=== PATIENT | male | born 1965 | race Caucasian/White ===

== ENCOUNTER 2017-01-22 06:46 | Observation (INO) ==
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
[2017-01-22] MEDS ORDERED: 0.9 % Sodium Chloride 1,000 ML IVC ONE (07:18)
[2017-01-22 07:45] LABS: Basophils # 0.1 K/mcL (0.0-0.2); Basophils % 0.5 %; Eosinophils % 0.1 %; Hemoglobin 17.6 g/dL (12.9-16.9); Immature Granulocytes % 0.7 % (0-4); Lymphocytes # 1.5 K/mcL (0.6-4.6); Mean Corpuscular HGB Conc 31.3 g/dL (31.6-35.5); Mean Corpuscular Hemoglobin 27.8 pg (28.0-33.3); Mean Corpuscular Volume 89.1 fL (83.0-100.0); Mean Platelet Volume 11.6 fL (9.4-12.4); Monocytes # 0.9 K/mcL (0.0-1.3); Monocytes % 5.8 %; Neutrophils # 13.5 K/mcL (1.6-8.9); Red Blood Count 6.32 M/mcL (4.19-5.50); Red Cell Distribution Width 16.2 % (11.5-14.5); Segmented Neutrophils % 83.9 %
[2017-01-22 07:51] LABS: Hematocrit 56.3 % (37.5-50.1); Platelet Count 75 K/mcL (140-400)
[2017-01-22 08:03] LABS: BUN/Creatinine Ratio 11 (6-26); Blood Urea Nitrogen 33 mg/dL (8-26); Carbon Dioxide 13 mEq/L (19-29); Chloride 101 mEq/L (98-109); Ethanol < 10 mg/dL (0-10); Glucose 184 mg/dL (70-99); Osmolality,Calculated 300 (280-300); Sodium 139 mEq/L (136-145); eGFR For African Americans 26 (> 60); eGFR For Non-African Americans 22 (> 60)
[2017-01-22 08:06] LABS: Potassium 6.5 mEq/L (3.5-4.5)
[2017-01-22] MEDS ORDERED: Insulin Human Regular 10 UNIT in 0.9 % Sodium Chloride 10 ML IV ONE (08:12)
[2017-01-22] MEDS ORDERED: *HR* Dextrose 50 % in Water (Vial) 50 ML VIAL IVP ONE (08:14)
[2017-01-22 09:16] LABS: Bilirubin,Urine Small (Negative); Blood,Urine Trace-intact (Negative); Clarity,Urine Clear (Clear); Color,Urine Orange (Yellow); Glucose,Urine (UA) Normal (Normal); Ketones,Urine Trace mg/dL (Negative); Leukocyte Esterase,Urine Negative (Negative); Nitrite,Urine Negative (Negative); PH,Urine 5.5 pH Units (5.0-8.0); Protein,Urine >=300 mg/dL (Neg-Trace); Urobilinogen,Urine Normal (Normal)
[2017-01-22] MEDS ORDERED: Naloxone 0.4 MG/ML INJ IVP PRN (09:29)
[2017-01-22] MEDS ORDERED: 0.9 % Sodium Chloride 1,000 ML IVC SCH (09:30)
[2017-01-22 09:39] LABS: Amorphous Sediment,Urine Many (Few); Granular Casts,Urine Many per lpf (None Seen); Hyaline Casts,Urine Moderate per lpf (None-Few); RBC,Urine 0-3 per hpf (0-3); Renal Epithelial Cells,Urine Few per hpf (None-Few); Squamous Epithelial Cell,Urine Few per lpf (None-Few); WBC,Urine 0-3 per hpf (0-3)
[2017-01-22 09:40] LABS: Amphetamine Screen,Urine Negative ng/mL (Cutoff=1000); Bacteria,Urine Few per hpf (None-Few); Barbiturate Screen,Urine Negative ng/mL (Cutoff=200); Benzodiazepines Screen,Urine Positive ng/mL (Cutoff=200); Cannabinoid Screen,Urine Negative ng/mL (Cutoff = 50); Cocaine Screen,Urine Negative ng/mL (Cutoff= 300); Mucus,Urine Few (Few); Opiate Screen,Urine Positive ng/mL (Cutoff=300); Phencyclidine Screen,Urine Negative ng/mL (Cutoff=25)
[2017-01-22 14:48] LABS: INR 1.1
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
[2017-01-22] MEDS ORDERED: ALPRAZolam 0.5 MG TABLET PO PRN (15:47)
--- NOTE | 2017-01-22 16:42 | Electrocardiograph Report ---
[address] [address] Test Date: 2017-01-22 Pat Name: Jordan Keenan Department: [id number] Room: [facility] Gender: M [employer] Supervisor: [id number] : 1965 Requested By: Angelika Thornton Order Number: [id number] Reading MD: Selena Keenan Measurements Intervals Canones Rate: 57 P: 70 CA: 132 QRS: 84 QRSD: 90 T: 60 QT: 431 QTc: 426 Interpretive Statements SINUS BRADYCARDIA POSSIBLE RIGHT ATRIAL ENLARGEMENT Electronically Signed On 01-22-2017 16:41:07 EDT by Selena Keenan
[2017-01-23 05:42] LABS: Alanine Aminotransferase 149 Units/L (0-55); Albumin 3.6 g/dL (3.5-5.0); Albumin/Globulin Ratio 0.8 (1.1-2.2); Alkaline Phosphatase 106 Units/L (38-126); Aspartate Amino Transferase 111 Units/L (5-34); BUN/Creatinine Ratio 21 (6-26); Bilirubin,Total 0.3 mg/dL (0.2-1.2); Blood Urea Nitrogen 30 mg/dL (8-26); Calcium 8.9 mg/dL (8.6-10.8); Carbon Dioxide 24 mEq/L (19-29); Chloride 102 mEq/L (98-109); Globulin 4.6 g/dL (2.4-3.5); Glucose 96 mg/dL (70-99); Magnesium 2.4 mg/dL (1.6-2.6); Osmolality,Calculated 294 (280-300); Potassium 3.3 mEq/L (3.5-4.5); Sodium 139 mEq/L (136-145); Total Protein 8.2 g/dL (6.0-8.3); eGFR For African Americans > 60 (> 60); eGFR For Non-African Americans 51 (> 60)
[2017-01-23 05:47] LABS: Basophils % 0.3 %; Eosinophils % 0.3 %; Hematocrit 46.4 % (37.5-50.1); Hemoglobin 15.4 g/dL (12.9-16.9); Immature Granulocytes % 0.7 % (0-4); Lymphocytes % 23.3 %; Mean Corpuscular HGB Conc 33.2 g/dL (31.6-35.5); Mean Corpuscular Hemoglobin 27.4 pg (28.0-33.3); Mean Corpuscular Volume 82.6 fL (83.0-100.0); Monocytes # 0.7 K/mcL (0.0-1.3); Monocytes % 5.8 %; Neutrophils # 8.5 K/mcL (1.6-8.9); Red Blood Count 5.62 M/mcL (4.19-5.50); Red Cell Distribution Width 14.8 % (11.5-14.5); Segmented Neutrophils % 69.6 %
[2017-01-23 05:48] LABS: Phenytoin (Dilantin) < 0.5 mcg/mL (10-20)
[2017-01-23 07:37] LABS: Lymphocytes # 2.8 K/mcL (0.6-4.6)
[2017-01-23 07:38] LABS: Mean Platelet Volume 9.7 fL (9.4-12.4); Platelet Count 174 K/mcL (140-400)
[2017-01-23] MEDS: Multivit/Ca/Min/Fe/FA 1 TAB TABLET PO SCH (09:03)
[2017-01-23] MEDS ORDERED: Ondansetron 4 MG/2 ML VIAL IVP PRN (14:47)
[2017-01-23] MEDS: 0.45 % Sodium Chloride w/KCl 20 MEQ/1,000 ML MLS IVC SCH (15:06)
[2017-01-23] MEDS: NIFEdipine XL (24 HR) 30 MG TAB.ER.24 PO SCH (15:08)
[2017-01-23] MEDS ORDERED: NIFEdipine XL (24 HR) 30 MG TAB.ER.24 PO ONE (20:15)
[2017-01-24] MEDS: 0.45 % Sodium Chloride w/KCl 20 MEQ/1,000 ML MLS IVC SCH (05:36)
[2017-01-24 06:13] LABS: Basophils % 0.2 %; Eosinophils % 0.3 %; Hematocrit 46.9 % (37.5-50.1); Hemoglobin 15.9 g/dL (12.9-16.9); Immature Granulocytes % 0.3 % (0-4); Lymphocytes # 2.9 K/mcL (0.6-4.6); Lymphocytes % 28.8 %; Mean Corpuscular HGB Conc 33.9 g/dL (31.6-35.5); Mean Corpuscular Hemoglobin 27.9 pg (28.0-33.3); Mean Corpuscular Volume 82.3 fL (83.0-100.0); Monocytes # 0.7 K/mcL (0.0-1.3); Neutrophils # 6.3 K/mcL (1.6-8.9); Red Cell Distribution Width 14.1 % (11.5-14.5); Segmented Neutrophils % 63.4 %
[2017-01-24 06:27] LABS: Mean Platelet Volume 9.4 fL (9.4-12.4)
[2017-01-24 06:48] LABS: Alanine Aminotransferase 130 Units/L (0-55); Albumin 3.5 g/dL (3.5-5.0); Albumin/Globulin Ratio 0.8 (1.1-2.2); Alkaline Phosphatase 95 Units/L (38-126); Aspartate Amino Transferase 78 Units/L (5-34); BUN/Creatinine Ratio 17 (6-26); Bilirubin,Total 0.5 mg/dL (0.2-1.2); Blood Urea Nitrogen 16 mg/dL (8-26); Calcium 9.2 mg/dL (8.6-10.8); Carbon Dioxide 21 mEq/L (19-29); Chloride 107 mEq/L (98-109); Globulin 4.4 g/dL (2.4-3.5); Glucose 113 mg/dL (70-99); Osmolality,Calculated 290 (280-300); Potassium 3.9 mEq/L (3.5-4.5); Sodium 139 mEq/L (136-145); Total Protein 7.9 g/dL (6.0-8.3); eGFR For African Americans > 60 (> 60); eGFR For Non-African Americans > 60 (> 60)
[2017-01-24 07:26] VITALS: BP 165/88
[2017-01-24] MEDS: NIFEdipine XL (24 HR) 30 MG TAB.ER.24 PO SCH (08:16)
[2017-01-24] MEDS: Multivit/Ca/Min/Fe/FA 1 TAB TABLET PO SCH (08:16)
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
== END 2017-01-24 11:15 | disposition home or self-care (01) ==
LOC: INPPIK 06:46 → EMEROOPIK 06:46 → INPPIK 10:21
PROVIDERS: ADMIT Internal Medicine; ATTEND Internal Medicine